=== PATIENT | female | born 1990 | race African-American/Black ===

== ENCOUNTER 2019-04-23 20:22 | Emergency (ER) | payer SELFPAY ==
[~2019-04-23] VITALS: Ht 172.7 cm; Wt 75.0 kg
[2019-04-23] MEDS ORDERED: SODIUM CHLORIDE 0.9% 1,000 ML IV ONE (20:46)
[2019-04-23] MEDS ORDERED: LORAZEPAM 2MG/ML CPJ IV ONE (21:00)
[2019-04-23] MEDS ORDERED: MORPHINE SULFATE 2 MG/ML CPJ (NOT FOR IM USE) IV ONE (21:00)
[2019-04-23 21:17] LABS: BASOPHILS % 0.2 % (0.0-2.0); EOSINOPHILS % 0.6 % (0.0-5.0); HEMATOCRIT. 35.4 % (36.0-48.0); HEMOGLOBIN. 11.8 g/dL (12.0-16.0); LYMPHOCYTES % 17.7 % (20.0-50.0); MEAN CORPUSCULAR HEMOGLOBIN 26.5 pg (28.0-32.0); MEAN CORPUSCULAR VOLUME 79.1 fL (81.0-99.0); MEAN PLATELET VOLUME 7.7 fl (7.4-10.4); MONOCYTES % 5.2 % (2.0-8.0); NEUTROPHILS % 76.3 % (40.0-76.0); PLATELET 304 x1000/uL (130-400); RED BLOOD CELL COUNT 4.47 mill/uL (4.2-5.4); RED CELL DISTRIBUTION WIDTH 14.6 % (11.6-14.6)
[2019-04-23 21:24] LABS: CHLORIDE 109 mEq/L (98-107)
[2019-04-23 21:46] LABS: B-HCG QUANTITATIVE 35658 mIU/mL (<3)
[2019-04-23] MEDS ORDERED: DEXT 5%/LR + PITOCIN 20UNITS/L 1,000 ML IV ONE (23:15)
[2019-04-24] MEDS ORDERED: POTASSIUM CHLORIDE 20MEQ TABLET SR PO ONE
[2019-04-24] MEDS ORDERED: MISOPROSTOL 200MCG TABLET PO ONE (00:30)
[2019-04-24] MEDS ORDERED: CEFTRIAXONE 1 G PREMIX 50 ML IV ONE (02:00)
[2019-04-24] MEDS ORDERED: MORPHINE SULFATE 2 MG/ML CPJ (NOT FOR IM USE) IV ONE (05:00)
[2019-04-24 10:38] VITALS: BP 110/57
== END 2019-04-24 10:50 | disposition home or self-care (01) ==
LOC: ER 20:22 → CANRESERV 04-24 07:41 → ENRESERV 04-24 07:41 → CANBEDREQ 04-24 08:05 → ER 04-24 10:50
DX: O03.4 Incomplete spontaneous abortion without complication (principal); Z3A.13 13 weeks gestation of pregnancy
CPT/HCPCS: 36415; 76830; 76856; 80053; 84702; 85025; 86850; 86900; 86901; 96365; 96366; 96375; 96376; 99284; J0696; J2060; J2270; J2590; J7030

== ENCOUNTER 2022-01-11 10:25 | Emergency (ER) | payer BC ==
[~2022-01-11] VITALS: Ht 167.6 cm; Wt 79.0 kg
[2022-01-11] MEDS ORDERED: HYDR99LO MT (10:57)
[2022-01-11] MEDS ORDERED: DIPH25CA83 MT (10:57)
[2022-01-11] MEDS ORDERED: DIPHENHYDRAMINE 25MG CAPSULE PO ONE (11:00)
[2022-01-11] MEDS ORDERED: NAPHADR EACHEYE (11:01)
[2022-01-11 11:29] VITALS: BP 128/94
== END 2022-01-11 11:30 | disposition home or self-care (01) ==
LOC: ER 10:33
DX: H01.8 Other specified inflammations of eyelid (principal); L25.9 Unspecified contact dermatitis, unspecified cause
CPT/HCPCS: 99283; Q0163